=== PATIENT | female | born 1995 | race Caucasian/White ===

== ENCOUNTER → 2024-02-03 06:28 | Day surgery (SDC) | payer BC, SELFPAY | LOC: GI 06:28 | PROVIDERS: ATTENDING PHYSICIAN Internal Medicine Gastroenterology | DX: K62.5 Hemorrhage of anus and rectum (principal); K64.8 Other hemorrhoids | CPT/HCPCS: 45378 ==

== ENCOUNTER 2024-06-28 09:27 | Emergency (ER) | payer OTHER, SELFPAY ==
[2024-06-28 09:37] VITALS: BP 128/75
--- NOTE | 2024-06-28 10:37 | ED.GENMED ---
History of Present Illness
General
Chief Complaint: Back Pain
Source: patient and spouse
Exam Limitations: none
Time Seen by Provider: 06/28/24 09:54
Nursing documentation reviewed up to this point in time: agreed with
History of Present Illness
History of Present Illness:
29-year-old female presenting to the emergency department today with concerns of low back discomfort after lifting her dog few hours prior to arrival to the emergency department. She took Tylenol prior to arrival with minimal improvement. Pain
made worse with movements denies any bowel or bladder dysfunction no numbness or weakness able to ambulate and walk
Past History
Past History
ED Past Medical History: None
ED Past Surgical History: Tonsilectomy and Other (Myringotomy tubes)
Social History
Tobacco: Non-smoker
Alcohol: None
Review of Systems
Review of Systems
Allergies reviewed?: Yes
All Other Systems: ROS reviewed and negative except as documented in HPI and ROS
Phy Exam
Physical Exam
Physical Exam:
GENERAL: Alert , in no apparent distress
EYE: pupils equal and reactive
NECK: Supple, no significant adenopathy.
ENT: o/p clr, mmm.
CARDIAC: Regular rate and rhythm .
LUNGS: Clear breath sounds bilaterally, no acute respiratory distress, no wheezes/rales/rhonchi
ABDOMEN: Soft, without focal tenderness, no r/g, no cvat
NEUROLOGICAL: Alert and oriented, no focal neuro deficits
SKIN: Warm and dry, skin intact.
MUSCULOSKELETAL: No edema, well perfused.
PSYCH: Normal and appropriate interaction.
Course
Orders/Labs/Results
Orders:
Orders
06/28/24 10:27
Diazepam [Valium] 5 mg PO NOW STA
Ibuprofen [Motrin] 600 mg PO NOW STA
Lumbar Spine, 2 or 3 View [CR Lumbar Spine 2 Or 3 Views] Urgent
Comment:
Reason For Exam: low backpain
Vital Signs
Initial and Last Documented VS:
Initial Vital Signs
Temp Pulse Resp BP Pulse Ox
97.8 F 71 18 128/75 100
06/28/24 09:37 06/28/24 09:37 06/28/24 09:37 06/28/24 09:37 06/28/24 09:37
Last Documented Vital Signs
Temp Pulse Resp BP Pulse Ox
97.8 F 71 18 128/75 100
06/28/24 09:37 06/28/24 09:37 06/28/24 09:37 06/28/24 09:37 06/28/24 09:37
MDM/Problems Addressed
MDM/Problems Addressed:
29-year-old female presenting to the emergency department today with concerns of low back discomfort after lifting her dog awkwardly earlier this morning. She took Tylenol at home without significant improvement. Upon arrival vital signs are
normal. No neurologic symptoms. Normal lower extremity examination no saddle anesthesia no bladder or bowel dysfunction. No red flag symptoms of back pain likely mechanical back pain. Symptoms improved after treatment here. Will follow-up as an
outpatient return precautions given.
*Critical Care Note
Total Time (30-74mins, 75-104mins- exclusive of procedures): Not Applicable
ED Attending Note
-
Portions of this chart may have been created with voice recognition software.� Occasional wrong word or��sound alike� substitutions may have occurred due to the inherent limitations of voice recognition software.
Discharge Plan
Departure
Patient Disposition: Home (Routine Discharge)
Date of Disposition: 06/28/24
Time of Disposition: 12:08
Patient with high blood pressure during this ER visit?: No
Condition: Good
Covid-19: Not Applicable
Discharge Problem:
Low back pain
Instructions: Low Back Pain (DC)
Prescriptions:
New
tizanidine [Zanaflex] 4 mg capsule
4 mg PO Q8H PRN (Reason: muscle spasticity) Qty: 7 0RF
ibuprofen 600 mg tablet
600 mg PO Q6H PRN (Reason: Pain) Qty: 10 0RF
No Action
hydrocodone-acetaminophen 15 ML solution
15 ml PO PRN PRN (Reason: throat pain)
Referrals:
Carrillo Watson MD [Family Provider] -
Wilfredo Gould MD [Active] - Follow up in 5-7 days
Activity Restrictions/Additional Instructions:
You came to the emergency department today with concerns of back discomfort. Here your x-ray did not show any emergent findings. Please take the prescribed medications and follow-up closely with the back doctor as needed. Return to the emergency
department for any worsening, new or concerning symptoms.
Discharge Date and Time
Print Language: [email or web address]
[2024-06-28] MEDS: MOTRIN 600 MG PO (10:38)
[2024-06-28] MEDS: VALIUM 5 MG PO (10:38)
== END 2024-06-28 12:20 | disposition home or self-care (01) ==
LOC: EMR 09:27
PROVIDERS: EMERGENCY PHYSICIAN Emergency Medicine; FAMILY PHYSICIAN Family Medicine
DX: M54.50 Low back pain, unspecified (principal)
CPT/HCPCS: 99283; 72100